=== PATIENT | male | born 1955 | race Caucasian/White ===

== ENCOUNTER 2016-06-14 22:58 | Emergency (ER) | payer OTHER ==
[2016-06-14] MEDS ORDERED: ASPIRIN CHEWTAB 81 MG TABLET ONE (23:21)
[2016-06-14] MEDS ORDERED: MORPHINE SULFATE 2 MG/ML SYRINGE ONE (23:53)
[2016-06-14] MEDS ORDERED: ACETAMINOPHEN 500 MG TABLET ONE (23:53)
[2016-06-14] MEDS ORDERED: NITROGLYCERIN OINT 1 G (DOSE) ONE (23:53)
[2016-06-14 23:54] LABS: ABSOLUTE NEUTROPHIL COUNT 4.7 K/mm3 (1.8-7.7); BASO # 0.1 K/mm3 (0.0-0.2); BASO % 0.9 % (0.2-1.0); EOS # 1.2 (0.0-0.5); EOS % 10.3 % (0.9-2.9); HEMATOCRIT 38.7 % (32.0-52.0); HEMOGLOBIN 13.4 gm/l (14.0-18.0); IMM NEUT% 0.4 % (0-1); LYMPH # 4.6 (1.0-4.8); LYMPH % 41.3 % (15-45); MEAN CELL VOLUME 94.2 fl (80.0-94.0); MEAN CORPUSCULAR HEMOGLOBIN 32.6 pg (27.0-31.0); MEAN CORPUSCULAR HGB CONC 34.6 g/dl (33.0-37.0); MEAN PLATELET VOLUME 9.6 fl (7.4-10.4); MONO # 0.5 (0.0-0.8); MONO % 4.8 % (4-12); NEUT % 42.3 % (43-75); PLATELET COUNT 163 K/mm3 (130-400); RED CELL DISTRIBUTION WIDTH 13.5 % (11.5-14.5)
[2016-06-14] MEDS ORDERED: ONDANSETRON 4 MG/2ML 2 ML VIAL ONE (23:55)
[2016-06-15] LABS: ALB/GLOB RATIO 1.4 (>1.0); ALBUMIN 4.2 gm/dL (3.5-5.7); CALCIUM 9.3 mg/dL (8.6-10.3)
[2016-06-15 00:02] LABS: TROPONIN I 0.08 ng/ml (0.0-0.06)
[2016-06-15 00:05] LABS: CKMB ISOENZYME 8.1 ng/ml (0.6-6.3)
[2016-06-15] MEDS ORDERED: HEPARIN SODIUM PREMIX 500 ML IV ONE (00:25)
[2016-06-15] MEDS ORDERED: Heparin Sodium 5000 unit/0.5ml syringe ONE (00:25)
[2016-06-15] MEDS ORDERED: MORPHINE SULFATE 2 MG/ML SYRINGE ONE (00:42)
[2016-06-15 00:47] LABS: INR 0.94; PROTHROMBIN TIME 9.9 SECONDS (9.3-11.4)
[2016-06-15] MEDS ORDERED: NITROGLYCERIN/D5W 25 MG/250 ML 250 ML IV ONE (01:09)
--- NOTE | 2016-06-15 07:31 | RAD ---
History: Chest pain for 12 hours. Comparison: None. Technique: 2 views Findings: The soft tissue and bony structures are unremarkable. The heart size is appropriate. No infiltrate, effusion or pneumothorax is observed. The hilar and mediastinal structures are normal. Impression: 1. No active intra-thoracic disease.
== END 2016-06-15 01:55 | disposition short-term general hospital (02) ==
LOC: ED 22:58
DX: I21.4 Non-ST elevation (NSTEMI) myocardial infarction (principal); I11.9 Hypertensive heart disease without heart failure; E11.9 Type 2 diabetes mellitus without complications; Z79.84 Long term (current) use of oral hypoglycemic drugs
CPT/HCPCS: 85025; 82553; 80053; 85730; 85610; 84484; 71020; 96375 ×3; 96376; 99291 ×2; 96365 ×2; A9270 ×3; J1644; J2270 ×2; J2405